=== PATIENT | male | born 1985 | race Caucasian/White ===

== ENCOUNTER 2020-03-27 06:23 | Outpatient (REF) | payer OTHER, MEDICARE, SELFPAY ==
[2020-03-27 07:31] LABS: Alanine Aminotransferase 27 U/L (0-40); Albumin Level 4.8 g/dL (3.5-5.0); Alkaline Phosphatase 73 U/L (39-117); Anion Gap 14 (12-20); Aspartate Amino Transferase 15 U/L (5-37); Bilirubin Total 0.5 mg/dL (0.0-1.0); Blood Urea Nitrogen 18 mg/dL (9-16); Calcium 9.8 mg/dL (8.4-10.2); Carbon Dioxide 29 mmol/L (22-29); Chloride 103 mmol/L (96-108); Cholesterol 158 mg/dL; Estimated Glomerular Filt Rate > 60; Glucose Fasting 100 mg/dL (60-99); HDL Cholesterol 56 mg/dL; LDL Cholesterol Calculated 74 mg/dl; Potassium 4.3 mmol/l (3.3-5.1); Rheumatoid Factor < 15.0 IU/mL (<15.0); Sodium 142 mmol/L (135-145); Total Protein 8.1 g/dL (6.5-8.0); Triglycerides 141 mg/dL
[2020-03-27 07:53] LABS: TSH reflex Free T4 1.15 mIU/mL (0.32-4.0)
[2020-03-28 23:57] LABS: Cyclic Citrullinated Peptide <16 UNITS
== END 2020-03-27 06:24 | disposition home or self-care (01) ==
LOC: HO.LAB 06:23
PROVIDERS: PCP Physician Assistant; Visit Provider Physician Assistant
DX: M25.50 Pain in unspecified joint (principal); Z13.1 Encounter for screening for diabetes mellitus; Z13.220 Encounter for screening for lipoid disorders; Z13.29 Encounter for screening for other suspected endocrine disorder
CPT/HCPCS: 36415; 80053; 80061; 84443; 86038; 86039; 86200; 86431